=== PATIENT | female | born 1945 | race Caucasian/White ===

== ENCOUNTER 2018-07-07 10:01 | Outpatient (CLI) | payer MEDICARE, OTHER ==
[2018-07-07 13:45] LABS: eGFR (Non-African) > 60
--- NOTE | 2018-07-08 04:56 | Diagnostic Imaging Report ---
RAQUEL DAO [facility] [address] [address] [facility] [address] [place], [place]. [address] Report Submission Date: Jul 07, 2018 12:35:13 PM SYSTEM OPERATION SUPERINTENDENT Patient Study Name: KATHY COMBS Date: Jul 07, 2018 11:38:33 AM SYSTEM OPERATION SUPERINTENDENT Modality Type: CT\SR Gender: F Description: CT BRAIN W W/O CON : 49 Institution: [facility] Physician: RAQUEL DAO Examination: CT head without/with contrast History: HEADACHES X8 MONTHS, MOSTLY RT SIDED, NO KNOWN INJURY (Hx) Comparison exam: None available Technique: Noncontrast/contrast head CT protocol. Findings: Ventricles and sulci are prominent, though consistent for patient age. Cerebrocerebellar parenchyma demonstrates periventricular low attenuation consistent with small vessel disease. No evidence for parenchymal hemorrhage. No abnormal enhancement on the postcontrast imaging. No evidence for mass or mass effect. No midline shift. No extra axial fluid collections. Partial visualization of the paranasal sinuses, mastoid air cells, orbits, skull and scalp without gross irregularity. Impression: Advanced age related changes. No acute parenchymal process. No hemorrhage. No abnormal enhancement. Electronically signed on Jul 07, 2018 12:35:13 PM SYSTEM OPERATION SUPERINTENDENT by: Ruben PARKER
== END 2018-07-07 10:03 ==
LOC: RAD 10:01
PROVIDERS: ATTEND Family Medicine
DX: R51 Headache (principal)
CPT/HCPCS: 36415; 70470; 80053; Q9967

== ENCOUNTER 2018-07-16 11:25 | Outpatient (CLI) | payer MEDICARE, OTHER ==
--- NOTE | 2018-07-16 18:43 | Diagnostic Imaging Report ---
RAQUEL DAO [facility] [address] [address] [facility] [address] [address] Report Submission Date: Jul 16, 2018 12:20:37 PM OFFICE RN Patient Study Name: KATHY COMBS Date: Jul 16, 2018 11:28:12 AM OFFICE RN Modality Type: DX Gender: F Description: SHOULDER : 49 Institution: [facility] Physician: RAQUEL DAO Examination: Plain film left shoulder History: Lt shoulder pain no obvious injury Comparison exams: None provided Findings: 3 views of the left shoulder demonstrate normal cortical margins. No evidence for fracture or dislocation. Acromioclavicular joint degenerative spurring. No soft tissue abnormality Impression: Acromioclavicular joint degenerative spurring. No acute appearing cortical abnormality. Electronically signed on Jul 16, 2018 12:20:37 PM OFFICE RN by: Ruben PARKER
== END 2018-07-16 11:35 ==
LOC: RAD 11:25
PROVIDERS: ATTEND Family Medicine
DX: M19.012 Primary osteoarthritis, left shoulder (principal)
CPT/HCPCS: 73030

== ENCOUNTER 2019-03-21 15:28 | Outpatient (CLI) | payer MEDICARE, OTHER ==
--- NOTE | 2019-03-21 16:20 | Diagnostic Imaging Report ---
PATIENT MR#: [id number] PATIENT PATIENT NAME: KATHY COMBS DATE OF : 1945 REFERRING PHYSICIAN: Juanita Ling EXAM DATE: 03/21/2019 ACCESSION NUMBER: [id number] EXAM DESCRIPTION: CHEST 2VIEW Examination: PA and lateral chest. History: Evaluate lung noyola. Comparison exam: 02 Nov 2018 Findings: PA and lateral views of the chest demonstrates a normal cardiac and mediastinal silhouette. Chronic interstitial changes. Mildly increased right infrahilar linear densities. No blunting of the costophr enic margins. Thoracic curvature to the right. Impression: Slightly increased right infrahilar linear densities/infiltrates. No definite effusion. Read by: Dr. Ruben Gresham Transcribed by: Transcribed Date: Electronically signed by: Dr. Ruben Gresham Date signed: 03/21/2019 4:19:10 PM
== END 2019-03-21 15:30 ==
LOC: RAD 15:28
PROVIDERS: ATTEND Family Medicine
DX: R06.02 Shortness of breath (principal)
CPT/HCPCS: 71046

== ENCOUNTER 2019-04-13 23:10 | Emergency (ER) | payer MEDICARE, OTHER ==
[2019-04-13] MEDS ORDERED: ASPIRIN 81 MG CHEW TAB PO ONE (23:32)
--- NOTE | 2019-04-13 23:41 | ED Physician Documentation ---
General Adult - HISTORIAN Historian: patient - HPI Stated Complaint: left shoulder pain and neck - left hand went "numb" for a second Chief Complaint: Upper Extremity Problem Onset: hours (5) Timing: better Severity: mild Further Comments: yes (She states she was laying on bed watching TV and she had some left shoulder pain earlier in day - she has fibromyalgia. She states while watching TV a few hours ago she had some pain after leaning across her body to get something with her left arm - she then had increasing pain in the left shouder and she was then watching tv and sitting her hand on her abdomen and she notes her left hand went numb for a few seconds. This has resolved at this time. She has no pain in her shoulder if she is not moving. Denies any chest pain after further discussion although she did google this and shoulder pain can be a heart attack) - ROS CONST: no problems CVS/RESP: denies: chest pain, shortness of breath, cough GI/: none NEURO/PSYCH: denies: headache - PAST HX Past History: hypertension Immunizations: UTD Allergies/Adverse Reactions: Allergies Allergy/AdvReac Type Severity Reaction Status Date / Time No Known Allergies Allergy Verified 04/13/19 23:46 Home Medications: Ambulatory Orders Medication Instructions Recorded Albuterol Sulfate [Ventolin HFN] 04/14/19 Brexpiprazole [Rexulti] 0.5 mg PO DAILY 04/14/19 Celecoxib 200 mg PO DAILY 04/14/19 Diazepam 10 mg PO PRN 04/14/19 Duloxetine HCl 30 mg PO BID 04/14/19 Levothyroxine Sodium [Unithroid] 1 tab PO DAILY 04/14/19 Methocarbamol 500 mg PO TID 04/14/19 Oxybutynin Chloride [Ditropan] 5 mg PO DAILY 04/14/19 Pregabalin 200 g PO BID 04/14/19 Ropinirole HCl 0.5 mg PO PRN PRN 04/14/19 Trazodone HCl [Desyrel] 300 mg PO HS 04/14/19 Umeclidinium [place] [Incruse 62.5 mcg PO DAILY 04/14/19 Ellipta] Vortioxetine Hydrobromide 1 tab PO DAILY 04/14/19 [Trintellix] oxyCODONE HCL [Percolone] 10 mg PO Q6 10/17/19 - SOCIAL HX Smoking History: non-smoker Alcohol Use: none Drug Use: none - FAMILY HX Family History: No - REVIEWED ASSESSMENTS Nursing Assessment Reviewed: Yes Vitals Reviewed: Yes Progress - Progress Progress: 0010: discussed results - she has chronic pain and she has pain med at home she is due when she returns she needs to follow up with PCP to re check WBC DG ED Results Lab/Radiology - Radiology Radiology Impressions: Chest, 1 view History: Chest pain Findings: Comparison is made to exam dated 03/21/2010. The heart size is normal. The lungs are hyperinflated but clear. There is no pleural effusion or pneumothorax identified. The osseous structures are normal. Impression: 1. No acute pulmonary disease. 2. Emphysematous change. Electronically signed on Apr 13, 2019 11:58:17 PM CDT by: Adrián Matthews - Orders Orders: ED Orders Category Date Time Status Continuous EKG monitoring Q1H Care 04/13/19 23:31 Active Continuous Pulse Oximetry Q30M Care 04/13/19 23:33 Active IV Started NOW Care 04/13/19 23:[address] IV Lock 1T Care 04/13/19 23:33 Active CHEST 1VIEW [RAD] Stat Exams 04/13/19 Ordered CBC/PLATELET/DIFF Stat Lab 04/13/19 23:34 Received CKMB Stat Lab 04/13/19 23:34 Received CMP Stat Lab 04/13/19 23:34 Received CREATINE KINASE Stat Lab 04/13/19 23:34 Received NT BNP Stat Lab 04/13/19 23:34 Received TROPONIN I Stat Lab 04/13/19 23:34 Received Aspirin [Penelope] Med 04/13/19 23:32 Discontinued 324 mg PO NOW ONE Oxygen Daily Oxygen 04/13/19 23:45 Ordered EKG WITH COMPARISON Stat Ther 04/13/19 23:33 Ordered General Adult Physical Exam - PHYSICAL EXAM GENERAL APPEARANCE: no distress EENT: eye inspection normal, no signs of dehydration NECK: normal inspection RESPIRATORY: no resp distress, chest non-tender, breath sounds normal CVS: reg rate & rhythm, heart sounds normal, equal pulses, no murmur ABDOMEN: soft BACK: normal inspection, no CVA tenderness SKIN: warm/dry, normal color EXTREMITIES: non-tender, tenderness, other (mild pain with active elevation on left shoulder - mild pain with palpation on left shouler. No obvious injury ) NEURO: oriented X3 Discharge Clincal Impression: Chronic pain Qualifiers: Chronic pain type: other chronic pain Qualified Code(s): G89.29 - Other chronic pain Referrals: Juanita Ling MD [Primary Care Provider] - 2 Days Comments: 1. Continue home meds 2. She is due for her Oxycodone at home 3. Follow up with PCP or pain management 4. Return to ER for any increased concerns Condition: Stable Disposition: 01 HOME, SELF-CARE Decision to Admit: NO Date of Decison to Admit: 04/14/19 Decision Time: 00:17
--- NOTE | 2019-04-14 00:01 | Diagnostic Imaging Report ---
PATIENT MR#: [id number] PATIENT PATIENT NAME: KATHY COMBS DATE OF : 1945 REFERRING PHYSICIAN: Yoli Holland EXAM DATE: 04/13/2019 ACCESSION NUMBER: [id number] EXAM DESCRIPTION: CHEST 1VIEW Chest, 1 view History: Chest pain Findings: Comparison is made to exam dated 03/21/2010. The heart size is normal. The lungs are hype rinflated but clear. There is no pleural effusion or pneumothorax identified. The osseous structures are normal. Impression: 1. No acute pulmonary disease. 2. Emphysematous change. Read by: Dr. Adrián Matthews Transcribed by: Transcribed Date: Electronically signed by: Dr. Adrián Matthews Date signed: 04/14/2019 12:00:37 AM
[2019-04-14 00:12] VITALS: BP 128/58
[2019-04-14 06:41] LABS: APPEARANCE,URINE CLEAR (CLEAR); COLOR,URINE YELLOW (YELLOW); OCCULT BLOOD,URINE 1+ (NEGATIVE); PH URINE 5.5 (5.0 - 8.0); UROBILINOGEN URINE 0.2 Eu (0.2-1.0)
[2019-04-14 06:44] LABS: BASOPHILS % 0.6 % (0.0-1.5); NEUTROPHILS # 14.1 # k/uL (1.4-7.7)
[2019-04-14 06:46] LABS: eGFR (Non-African) 27
== END 2019-04-14 00:23 | disposition home or self-care (01) ==
LOC: ED 23:10
DX: G89.29 Other chronic pain (principal); M25.512 Pain in left shoulder; M54.2 Cervicalgia
CPT/HCPCS: 71045; 80053; 81002; 82550; 82553; 83880; 84484; 85025; 93005; 99283; 99284; S1016

== ENCOUNTER 2019-04-14 10:46 | Outpatient (CLI) | payer MEDICARE, OTHER ==
[2019-04-14 00:12] VITALS: BP 128/58
--- NOTE | 2019-04-15 16:51 | Diagnostic Imaging Report ---
RAQUEL DAO [facility] [address] [facility] [address] [address] Report Submission Date: Apr 14, 2019 11:49:08 AM CDT Patient Study Name: KATHY COMBS Date: Apr 14, 2019 10:47:11 AM CDT Modality Type: DX Gender: F Description: L SPINE 4 VIEWS : 49 Institution: [facility] Physician: RAQUEL DAO 4 views of the lumbar spine History: L-SPINE, LOW BACK PAIN, NO KNOWN INJURY no comparison studies No comparison studies Levoscoliosis of the lumbar spine. Lateral subluxation at L2-3 with intervertebral disc space narrowing and vacuum disc phenomena at L2 through L4 levels. Extensive facet arthropathy and multilevel degenerative changes are present. Loss of height of L2, L4, L5 vertebral bodies. Superior endplate fracture of L4 vertebral body is age indeterminate. Extensive vascular calcification. Grade I- II anterolisthesis of L3 on L4 Impression: 1. Levoscoliosis of the lumbar spine. Lateral subluxation of L2-3. Grade I- II anterolisthesis of L3 on L4. Extensive multilevel degenerative changes worse from L2 through L5 2. Compression fractures of L2, L4 and L5 vertebral bodies are of indeterminate age. MRI should be considered. Electronically signed on Apr 14, 2019 11:49:08 AM CDT by: Giovana PARKER
== END 2019-04-14 10:50 ==
LOC: RAD 10:46
PROVIDERS: ATTEND Family Medicine
DX: M54.5 Low back pain (principal)
CPT/HCPCS: 72110

== ENCOUNTER 2019-05-10 12:29 | Outpatient (CLI) | payer MEDICARE, OTHER ==
--- NOTE | 2019-05-10 17:59 | Diagnostic Imaging Report ---
PATIENT MR#: [id number] PATIENT PATIENT NAME: KATHY COMBS DATE OF : 1945 REFERRING PHYSICIAN: Juanita Ling EXAM DATE: 05/10/2019 ACCESSION NUMBER: [id number] EXAM DESCRIPTION: TIBIA FIBULA 2 VIEW CLINICAL HISTORY: FALL 3 DAYS AGO WITH ANTERIOR PAIN COMPARISON: No study for comparison is available at the time of interpretation. TECHNIQUE: DX right tibia fibula, 2 views Osseous structures: The osseous structures are normal with no evidence of fracture or dislocation. Th ere is no osseous lesion or periosteal reaction. Joint spaces: Status post knee arthroplasty with intact hardware. Soft tissues: There is normal appearance of the soft tissues with no radiopaque foreign body seen. IMPRESSION: No acute fracture. Read by: Dr. Dom Catalan Transcribed by: Dom Catalan Transcribed Date: 05/10/2019 5:59:20 PM Electronically signed by: Dr. Dom Catalan Date signed: 05/10/2019 5:59:20 PM
--- NOTE | 2019-05-10 18:01 | Diagnostic Imaging Report ---
PATIENT MR#: [id number] PATIENT PATIENT NAME: KATHY COMBS DATE OF : 1945 REFERRING PHYSICIAN: Juanita Ling EXAM DATE: 05/10/2019 ACCESSION NUMBER: [id number] EXAM DESCRIPTION: KNEE 3 VIEWS CLINICAL HISTORY: FALL 3 DAYS AGO WITH ANTERIOR PAIN COMPARISON: No study for comparison is available at the time of interpretation. TECHNIQUE: DX right knee, 3 views Osseous structures: Status post right knee arthroplasty with intact hardware. Joint spaces: The arthroplasty components are well aligned. Soft tissues: There is normal appearance of the soft tissues. IMPRESSION: Status post arthroplasty. No acute fracture or hardware loosening. Read by: Dr. Dom Catalan Transcribed by: Dom Catalan Transcribed Date: 05/10/2019 6:00:49 PM Electronically signed by: Dr. Dom Catalan Date signed: 05/10/2019 6:00:49 PM
--- NOTE | 2019-05-10 18:31 | Diagnostic Imaging Report ---
PATIENT MR#: [id number] PATIENT PATIENT NAME: KATHY COMBS DATE OF : 1945 REFERRING PHYSICIAN: Juanita Ling EXAM DATE: 05/10/2019 ACCESSION NUMBER: [id number] EXAM DESCRIPTION: SHOULDER 2 VIEWS OR MORE CLINICAL HISTORY: CHRONIC SHOULDER PAIN THAT RADIATES TO NECK COMPARISON: No study for comparison is available at the time of interpretation. TECHNIQUE: DX left shoulder, 3 views Osseous structures: The osseous structures are normal with no evidence of fracture or dislocation. Th ere is no osseous lesion or periosteal reaction. Joint spaces: The bones are well aligned. There are minimal degenerative changes of the inferior anastasiia ohumeral joint and acromioclavicular joint. Soft tissues: There is normal appearance of the soft tissues with no radiopaque foreign body seen. IMPRESSION: Minimal degenerative changes of the AC and glenohumeral joint. Read by: Dr. Dom Catalan Transcribed by: Dom Catalan Transcribed Date: 05/10/2019 6:30:59 PM Electronically signed by: Dr. Dom Catalan Date signed: 05/10/2019 6:30:59 PM
== END 2019-05-10 12:40 ==
LOC: RAD 12:29
PROVIDERS: ATTEND Family Medicine
DX: M25.561 Pain in right knee (principal); M25.512 Pain in left shoulder
CPT/HCPCS: 73030; 73562; 73590

== ENCOUNTER 2019-05-23 12:57 | Outpatient (CLI) | payer MEDICARE, OTHER ==
--- NOTE | 2019-05-23 15:10 | Diagnostic Imaging Report ---
PATIENT MR#: [id number] PATIENT PATIENT NAME: KATHY COMBS DATE OF : 1945 REFERRING PHYSICIAN: Justyn Gibson EXAM DATE: 05/23/2019 ACCESSION NUMBER: [id number] EXAM DESCRIPTION: US U OR L EXT VEINS UNILAT UNILATERAL RIGHT LOWER EXTREMITY VENOUS DUPLEX History: Swelling of the right leg. The patient fell on a rock. Duplex and color flow imaging was performed through the right lower extremity femoral-popliteal venou s system revealing normal compressibility and normal augmentation response throughout. No evidence for deep venous thro mbosis. At midline just below the patella and extending laterally along the proximal aspect of the hayes, ther e is a hypoechoic area with internal debris, consistent with a hematoma. There is soft tissue swelling overlying the r egion of hematoma. This area could not be accurately measured with the ultrasound probe but the technologist estimates t hat the hematoma measures approximately 3 in x 4 in. IMPRESSION: No evidence for deep venous thrombosis. Abnormal hypoechoic collection with internal debris extending from midline just below the patella lat erally along the proximal hayes as described. If further assessment with regard to the size of this abnormality/hemato ma is desired, CT could be obtained. Read by: Dr. Tiffanie Connolly Transcribed by: Transcribed Date: Electronically signed by: Dr. Tiffanie Connolly Date signed: 05/23/2019 3:09:25 PM
== END 2019-05-23 13:07 ==
LOC: RAD 12:57
PROVIDERS: ATTEND Surgery
DX: M79.89 Other specified soft tissue disorders (principal)
CPT/HCPCS: 93971